=== PATIENT | female | born 1975 | race Caucasian/White ===

== ENCOUNTER 2019-12-13 17:45 | Emergency (ER) | payer OTHER, SELFPAY ==
--- NOTE | ~2019-12-13 | CT_ITS ---
EXAMINATION: CT facial bones wo con EXAM DATE: 12/13/2019 19:15 INDICATION: Right shoulder pain, toothache. TECHNIQUE: Spiral CT of the facial bones was acquired in the axial plane without contrast. Coronal reformatted images were also reviewed. The dose-length product (DLP) for this examination was 501.38 mGy-cm. The exposure was tailored according to patient size, and iterative reconstruction (ASIR) wa s used as additional dose reduction technique. There is no prior study for comparison. FINDINGS: There are dental cavities. There is no mandibular erosion or facial abscess. The fat planes are preserved. No upper cervical lymphadenopathy. There is mild to moderate right maxillary sinus mu coperiosteal thickening. No sinus air-fluid levels. No fracture. IMPRESSION: 1. Dental cavities. Reviewed, dictated and finalized at location A. IMPRESSION: 1. Dental cavities.
[2019-12-13 17:47] VITALS: BP 152/102; PULSE 99; RESP 16; TEMP 36.7; O2SAT 98
--- NOTE | 2019-12-13 19:23 | PC.NURSE ---
Assumed care of patient from SEEMA Acosta. Pt resting in stretcher in NAD, denies needs at this time, call light within reach.
[2019-12-13 19:26] LABS: Basophils Absolute Auto 0.1 K/mm3 (0.0-0.1); Basophils Percent Auto 0.5 % (0.2-1.2); Hemoglobin 13.6 g/dL (12.0-15.0); Immature Granulocyte Absolute 0.04 K/mm3 (0.00-0.031); Immature Granulocyte Percent A 0.3 % (0-0.5); Lymphocytes Absolute Auto 3.91 K/mm3 (0.9-3.2); Mean Corpuscular HGB Conc 32.4 g/dl (32-36); Mean Corpuscular Hemoglobin 29.6 pg (26-34); Mean Corpuscular Volume 91.5 fl (80-100); Mean Platelet Volume 9.1 fl (7.4-10.4); Monocytes Absolute Auto 0.6 K/mm3 (0.1-0.6); Monocytes Percent Auto 4.5 % (2.6-8.5); Neutrophils Absolute Auto 8.4 K/mm3 (1.3-6.7); Neutrophils Percent Auto 64.7 % (45.5-73.1); Platelet Count Result 366 k/mm3 (150-375); Red Blood Count 4.59 M/mm3 (4.2-5.4); Red Cell Distribution Width 14.6 % (11.5-14.5)
[2019-12-13 19:59] LABS: Erythrocyte Sedimentation Rate 19 mm/hr (0-20)
--- NOTE | 2019-12-13 20:02 | ED.DENTAL ---
HPI - Dental/Oral General Chief complaint: Dental/Oral <PRANAY uGerrier Last Filed: 12/13/19 20:11> Stated complaint: tooth infection <PRANAY Guerrier Last Filed: 12/13/19 20:11> Time Seen by Provider: 12/13/19 18:06 <PRANAY Guerrier Last Filed: 12/13/19 20:11> Source: patient <PRANAY Guerrier Last Filed: 12/13/19 20:11> Mode of arrival: ambulatory <PRANAY Guerrier Last Filed: 12/13/19 20:11> Limitations: no limitations <PRANAY Guerrier Last Filed: 12/13/19 20:11> History of Present Illness HPI Narrative: Patient presents the emergency department for toothache x1 month. Reports she was seen by her dentist for this and finished a round of clindamycin. Reports no relief. Reports she has continued to have pain, redness and swelling around the tooth. Denies fever vomiting. <PRANAY Guerrier Last Filed: 12/13/19 20:11> MD Complaint: tooth pain <PRANAY Guerrier Last Filed: 12/13/19 20:11> Location: Tooth # (4) <PRANAY Guerrier Last Filed: 12/13/19 20:11> Related Data Home medications: Home Medications Medication Instructions Recorded Confirmed budesonide-formoterol [Symbicort] INHALATION 12/13/19 escitalopram oxalate mg 12/13/19 lisinopril 12/13/19 omeprazole 12/13/19 <PRANAY Guerrier Last Filed: 12/13/19 20:11> Allergies/adverse reactions: Allergies Allergy/AdvReac Type Severity Reaction Status Date / Time Penicillins Allergy Mild HIVES Verified 12/13/19 17:50 STEROID MEDICATION AdvReac Mild Rash Uncoded 12/13/19 17:50 <PRANAY Guerrier Last Filed: 12/13/19 20:11> Review of Systems Review of Systems: Narrative: CONSTITUTIONAL: Denies fever ENT: Reports dentalgia SKIN: Denies rash <Cassi Almonte PA-C - Last Filed: 12/13/19 20:11> All systems reviewed & are unremarkable except as noted in HPI and below <Cassi Almonte PA-C - Last Filed: 12/13/19 20:11> PMFSH Past Medical History Medical History: Medical History (Updated 12/13/19 @ 20:07 by Cassi Almonte PA-C) History of asthma History of gastroesophageal reflux (GERD) History of hypertension <Cassi Almonte PA-C - Last Filed: 12/13/19 20:11> Social History Social History: Social History (Updated 12/13/19 @ 20:05 by Cassi Almonte PA-C) Smoking status: Never smoker <Cassi Almonte PA-C - Last Filed: 12/13/19 20:11> Exam Narrative: Exam Narrative: GENERAL: Well-appearing, well-nourished, and in no acute distress. HEAD: Normocephalic, atraumatic. EYES: EOMI. ENT: Mucous membranes moist. Oropharynx without tonsillar hypertrophy exudate or other lesions. Poor dentition. Tooth #4 rotten and tender to palpation with mild surrounding erythema, no fluctuance to suggest abscess. No trismus NECK: Supple. No adenopathy or masses. RESPIRATORY: Airway patent EXTREMITIES: Normal range of motion. No edema. SKIN: Warm, dry, no rash. NEURO: No focal deficits. Alert and oriented x3. PSYCH: Normal mood and affect <Cassi Almonte PA-C - Last Filed: 12/13/19 20:11> Course Vital Signs Vital signs: Vital Signs Temperature 98.1 F 12/13/19 17:47 Pulse Rate 99 12/13/19 17:47 Respiratory Rate 16 12/13/19 17:47 Blood Pressure 152/102 H 12/13/19 17:47 Pulse Oximetry 98 12/13/19 17:47 Temperature 98.1 F 12/13/19 17:47 Pulse Rate 96 12/13/19 20:20 Respiratory Rate 16 12/13/19 20:20 Blood Pressure 144/99 H 12/13/19 20:20 Pulse Oximetry 95 12/13/19 20:20 <Cassi Almonte PA-C - Last Filed: 12/13/19 20:11> Vital Signs Temperature 98.1 F 12/13/19 17:47 Pulse Rate 99 12/13/19 17:47 Respiratory Rate 16 12/13/19 17:47 Blood Pressure 152/102 H 12/13/19 17:47 Pulse Oximetry 98 12/13/19 17:47 Temperature 98.1 F 12/13/19 17:47 Pulse Rate 96 12/13/19 20:20 Respiratory Rate 16 12/13/19 20:20 Blood Press
[2019-12-13 20:20] VITALS: BP 144/99; PULSE 96; RESP 16; O2SAT 95
== END 2019-12-13 20:21 | disposition home or self-care (01) ==
PROVIDERS: Physician Assistant; Emergency Provider Emergency Medicine
DX: K08.89 Other specified disorders of teeth and supporting structures (principal); J45.909 Unspecified asthma, uncomplicated; K21.9 Gastro-esophageal reflux disease without esophagitis; I10 Essential (primary) hypertension; K02.9 Dental caries, unspecified
CPT/HCPCS: 36415; 70486; 85025; 85652; 86140; 99284

== ENCOUNTER 2021-06-12 12:15 | Outpatient (CLI) | payer OTHER, SELFPAY ==
--- NOTE | ~2021-06-12 | XR_ITS ---
XR lumbar spine 2-3V DATE: 06/12/2021 12:39 INDICATION: Low back pain, chronic bilateral lower extremity radiculopathy TECHNIQUE: AP, lateral, coned lateral lumbosacral views COMPARISON: None FINDINGS: There is mild levoscoliosis of the lower thoracic and lumbar spine. Osteopenia. There is mild degenerative spurring of the lumbar spine. The lumbar and lumbosacral interspaces appea r well preserved. No fracture or bone destruction is detected. The lumbar pedicles are intact. The sa croiliac joints appear normal. IMPRESSION: Mild levoscoliosis and mild degenerative spurring Osteopenia Reviewed, dictated and finalized at location B.
== END 2021-06-12 12:16 | disposition home or self-care (01) ==
LOC: ANHIMG 12:23
PROVIDERS: PCP Nurse Practitioner Family
DX: M54.50 Low back pain, unspecified (principal); M85.88 Other specified disorders of bone density and structure, other site
CPT/HCPCS: 72100

== ENCOUNTER 2022-10-05 15:00 | Outpatient (RCR) | payer OTHER, SELFPAY ==
[2022-08-13 09:40] VITALS: BP_SYST 90
--- NOTE | 2022-08-13 11:01 | BUPTOPEVAL1 ---
Assessment and note entered by Odalis Lozano, PT Evaluation Information Assessment Status Evaluation Diagnosis L shoulder pain Onset 5 years Subjective Information Reports lately left shoulder pain has increased. Reports started helping a ritchie lifting his w/c 8 months ago, and notes this is when her left shoulder started hurting. Reports is returning to MD Aug 19 to discuss options Reported Pain Level Pain Score 0-7/10 Assessment PT Clinical Summary Pt presents w/ c/o pain in left shoulder that began multiple years ago but increased notably when she began helping someone she knows by loading his wheelchair into his car. Pt demo's decreased AROM and PROM with poor posture consistent with shoulder impingement. Pt will benefit from therapy to address scapulothoracic and scapulohumeral kinematics to improve impingement and pain. Plan of Care Interventions Electrical Stimulation,Hot Pack/Cold Pack,Manual Therapy,Neuro Re-education,Patient/Caregiver Educati,Therapeutic Activities,Therapeutic Exercise,Ultrasound,Other Other Interventions Taping PT Services Indicated Yes Treatment Frequency and 2x weekly x 6 weeks Duration These treatments will address the objective and functional deficits as defined above. The patient will be advanced safely and appropriately in order for the patient to progress towards his/her prior level of function. Additional exercises will be introduced and as well as a comprehensive home exercise program upon discharge, if needed, ?to ensure carryover of functional gains achieved in the clinic. This treatment plan has been reviewed and agreement upon by the patient.
--- NOTE | 2022-08-17 09:30 | PCPTNOTE ---
Patient called & cancelled scheduled appointment this date due to family emergency and was currently heading to the police station. Was hoping to reschedule for later appointment but there was no availability.
--- NOTE | 2022-10-05 15:57 | PTOPDC ---
Assessment and note entered by Odalis Lozano, PT Assessment Status Discharge Diagnosis L shoulder pain Onset 5 years Subjective Information Reports feeling 100% improved. Pain is resolved, pt is able to lean her weight on her arm, carry items, and hang laundry without pain. Reported Pain Level Pain Score 0: Self Report Assessment PT Clinical Summary Pt has attended therapy consistently since initial evaluation. Today she reports feeling 100% improved, is able to perform all her activities pain free, has met all her personal goals and all therapy stated goals. Thus pt is being discharged from therapy POC.
== END 2022-10-06 10:55 | disposition home or self-care (01) ==
LOC: ANHHIPT 15:00
PROVIDERS: Visit Provider Orthopaedic Surgery
DX: M25.512 Pain in left shoulder (principal)
CPT/HCPCS: 97014; 97110; 97112; 97140; 97161; 99199; G0283

== ENCOUNTER 2022-12-24 10:30 | Outpatient (RCR) | payer OTHER, SELFPAY ==
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
--- NOTE | 2022-12-17 08:38 | PCPTNOTE ---
Patient called & cancelled scheduled appointment this date due to her son being in hospital. Pt will call back later to discuss further appointments.
--- NOTE | 2022-12-24 10:48 | PTOPPROGNS ---
Assessment and note entered by Odalis Lozano, PT Assessment Status Progress Report Diagnosis right shoulder pain Onset 11/20/22 Subjective Information Pt reports is still swelled up in the arm. Taping didn't help. Still can't lift arm to do grooming or other activities. Self-report feels no relief with swelling, pain is not improved especially with movement. Assessment PT Clinical Summary Pt has attended therapy for her right shoulder pain for 6 visits. We have used ultrasound, taping , manual therapy, cryotherapy, electrical stimulation, postural reeducation, and submaximal strengthening. Pt has given full effort and appears to have followed therapist instructions. However, she has not made improvement in her pain, swelling, or range. Thus we are referring her back to provider for further testing. Plan of Care PT Services Indicated Yes. Will await further instruction from MD These treatments will address the objective and functional deficits as defined above. The patient will be advanced safely and appropriately in order for the patient to progress towards his/her prior level of function. Additional exercises will be introduced and as well as a comprehensive home exercise program upon discharge, if needed, ?to ensure carryover of functional gains achieved in the clinic. This treatment plan has been reviewed and agreement upon by the patient.
--- NOTE | 2023-01-10 10:22 | PCPTNOTE ---
Patient called & cancelled scheduled appointment this date due to illness and being unable to go to her MRI last week due to illness
--- NOTE | 2023-01-12 14:48 | PTOPDC ---
Assessment and note entered by Odalis Lozano, PT Assessment Status Discharge Diagnosis right shoulder pain Onset 11/20/22 Subjective Information Pt reports is still swelled up in the arm. Taping didn't help. Still can't lift arm to do grooming or other activities. Self-report feels no relief with swelling, pain is not improved especially with movement. Reported Pain Level Pain Score 0: Self Report Assessment PT Clinical Summary Pt had attended therapy consistently for her shoulder pain after lifting injury. She also received a steroid shot and had no improvement with either. She was referred back to MD and referred for MRI. Was unable to have MRI due to illness on scheduled date. Spoke with patient today and she has opted to place therapy on hold until is able to follow up with MRI and MD. Thus is being discharged from therapy at this time. We will be happy to reinitiate therapy with a new order.
== END 2023-01-12 15:05 | disposition home or self-care (01) ==
LOC: ANHHIPT 10:30
PROVIDERS: Visit Provider Orthopaedic Surgery
DX: M25.511 Pain in right shoulder (principal); S46.011D Strain of muscle(s) and tendon(s) of the rotator cuff of right shoulder, subsequent encounter
CPT/HCPCS: 97014; 97032; 97035; 97110; 97112; 97140; 97162; G0283

== ENCOUNTER 2023-10-16 17:15 | Emergency (ER) | payer OTHER, SELFPAY ==
[2023-10-16 17:18] VITALS: BP 168/94; PULSE 102; RESP 18; TEMP 36.5; O2SAT 99
[2023-10-16 18:20] VITALS: BP 169/103; PULSE 98; RESP 19; O2SAT 99
[2023-10-16 19:30] VITALS: BP 142/100; PULSE 101; RESP 17; O2SAT 98
[2023-10-16] MEDS: methylPREDNISolone SOD SUCC 125 MG VIAL IV PUSH (20:33)
[2023-10-16] MEDS: diphenhydrAMINE HCl INJ 50 MG/ML VIAL IV PUSH (20:33)
--- NOTE | 2023-10-16 20:51 | ED.GENADULT ---
HPI - General Adult General Chief complaint: Allergic Reaction Stated complaint: allergic reaction Time Seen by Provider: 10/16/23 19:18 History of Present Illness HPI narrative: Patient is a 48-year-old female who presents emergency department with chief complaint of possible allergic reaction. The patient reports that she started on the new PPI yesterday and also an H2 anil. The patient states that she noticed today that her face was starting to swell the patient does report that she takes lisinopril as well but has been on it for some time has had no change in her doses and that today her symptoms have started after taking her new medications. The patient denies stridor denies difficulty swallowing reports that she is not itching Related Data Home Medications Medication Instructions Recorded Confirmed budesonide-formoterol HFA 160 inhalation 12/13/19 12/08/22 mcg-4.5 mcg/actuation aerosol inhaler (Symbicort) escitalopram oxalate 10 mg tablet mg 12/13/19 12/08/22 lisinopril 10 mg tablet 12/13/19 12/08/22 omeprazole 40 mg capsule,delayed 12/13/19 12/08/22 release Allergies Allergy/AdvReac Type Severity Reaction Status Date / Time prednisone Allergy Intermediate Hives Verified 10/16/23 17:15 Penicillins Allergy Mild HIVES Verified 10/16/23 17:15 Review of Systems Review of Systems: A 10 system review of systems was completed on the patient and is negative except for what is stated in the HPI. Nursing and ancillary documentation was reviewed. [facility] Past Medical History Medical History Asthma COPD (chronic obstructive pulmonary disease) History of asthma History of gastroesophageal reflux (GERD) History of hypertension Left shoulder pain Von Willebrand disease Surgical History Surgical History History of carpal tunnel release right History of hernia repair History of sinus surgery Family History Family History Father Alcoholism Cancer Other Asthma Cancer Diabetes mellitus Sibling Cancer Diabetes mellitus Hypertension Grandparent Diabetes mellitus Mother Cerebrovascular accident Social History Social History Smoking status: Never smoker Alcohol intake: never Substance use type: does not use Living arrangements: alone Exam Narrative: GENERAL: Well-appearing, well-nourished, and in no acute distress. HEAD: Normocephalic, atraumatic. EYES: PERRLA and EOMI. ENT: Nares clear, no rhinorrhea or epistaxis. Mucous membranes moist. Slight swelling present left side of the face no signs of intraoral edema, no stridor NECK: Supple. CHEST: Clear to auscultation. No respiratory distress. HEART: Regular rate and rhythm. No murmur heard. Normal peripheral pulses. ABDOMEN: Soft, nontender, nondistended, normal active bowel sounds. EXTREMITIES: Normal range of motion. No edema. SKIN: Warm, dry, no rash. NEURO: No focal deficits. Alert and oriented x3. PSYCH: Normal mood and affect. Course Vital Signs Vital signs: Vital Signs Temperature 36.5 C 10/16/23 17:18 Pulse Rate 102 H 10/16/23 17:18 Respiratory Rate 18 10/16/23 17:18 Blood Pressure 168/94 H 10/16/23 17:18 Pulse Oximetry 99 10/16/23 17:18 Oxygen Delivery Room Air 10/16/23 17:18 Temperature 36.5 C 10/16/23 17:18 Pulse Rate 101 H 10/16/23 19:30 Respiratory Rate 17 10/16/23 19:30 Blood Pressure 142/100 H 10/16/23 19:30 Pulse Oximetry 98 10/16/23 19:30 Oxygen Delivery Room Air 10/16/23 17:18 Medical Decision Making [facility] Narrative Medical decision making narrative: Differential diagnosis includes allergic reaction, Patient was given IM steroids and IM Benadryl since she was a difficult IV access. The patie
[2023-10-16 21:30] VITALS: BP 135/95; PULSE 78; RESP 16; TEMP 36.7; O2SAT 98
== END 2023-10-16 21:35 | disposition home or self-care (01) ==
PROVIDERS: Emergency Provider Emergency Medicine
DX: R22.0 Localized swelling, mass and lump, head (principal); T50.995A Adverse effect of other drugs, medicaments and biological substances, initial encounter; J44.9 Chronic obstructive pulmonary disease, unspecified; K21.9 Gastro-esophageal reflux disease without esophagitis; I10 Essential (primary) hypertension; D68.00 Von Willebrand disease, unspecified
CPT/HCPCS: 96374; 96375; 99284; J1200; J2930

== ENCOUNTER 2025-07-04 13:08 | Outpatient (CLI) | payer OTHER, SELFPAY ==
--- NOTE | ~2025-07-04 | XR_ITS ---
XR_[id number]_CR Indication: RT SIDED NECK PAIN DOWN INTO RT ARM x3 MONTHS Comparison: None Findings: The vertebral heights are intact. No fracture or subluxation. The disc heights are intact. Soft tissues unremarkable Impression: No acute abnormality. Reviewed, dictated and finalized at location P. Impression: No acute abnormality.
--- NOTE | ~2025-07-04 | XR_ITS ---
EXAMINATION: XR shoulder RT min 2V, 07/04/2025 13:38 CDT HISTORY: RT SHOULDER PAIN RADIATES INTO RT SIDE OF NECK RT ARM COMPARISON: No comparisons available. Findings: No acute fracture or malalignment. Moderate degenerative changes Soft tissues unremarkable. Impression: No acute fracture or malalignment. Reviewed, dictated and finalized at location P. Impression: No acute fracture or malalignment.
--- NOTE | ~2025-07-04 | XR_ITS ---
XR lumbar spine 2-3V Indication: RT SIDED LBP DOWN INTO RT LEG x3 MONTHS Comparison: None Findings: The vertebral heights are intact. No fracture or subluxation. The disc heights are intact. Soft tissues unremarkable Impression: No acute abnormality. Reviewed, dictated and finalized at location P. Impression: No acute abnormality.
--- OUTSIDE RECORDS SUMMARY | 2025-07-04 14:13 | XMS_ITS | Clinical Summary ---
Author Organization [facility] [employer] Address [address] [place] [address] Care Team Providers Care Manager News Name Role Phone Augustina Cesar ONEYDA-TURNER MACHINE Primary Care Provider Source Comments [facility],non-owned Affiliates and Associated Physician Practices is amultiple site organization consisting of ambulatory clinics and hospital sitesin [place], [place], [place] and [place]. This disclosure is being madepursuant to the Care Everywhere program and may not contain all information available regarding this patient. Last updated 18.[facility] Allergies Active Allergy Reactions Criticality Noted Date Comments Penicillins Rash Medium 04/01/2018 Medications * Be aware that medications may not be up to date on this document. Alwaysverify current medications with the patient. lisinopril (Prinivil; Zestril) 10 MG tablet Take 1 (one) tablet by mouth once daily Active famotidine (Pepcid) 20 MG tablet Take 1 (one) tablet by mouth once daily Active escitalopram (Lexapro) 10 MG tablet Take 1 (one) tablet by mouth once daily Active albuterol HFA (Proventil; Ventolin; Proair) 108 (90 Base) MCG/ACT inhaler Inhale 2 (two) puffs by mouth every 6 hours as needed Active tranexamic acid (Lysteda) 650 MG tablet Dissolve 1300 mg (two 650 mg tablets) in 20 mL of water. Swish and swallow three times daily, for five days, starting one hour prior to procedure. 30 tablet 03/26/2024 Active Active Problems Problem Noted Date Diagnosed Date Closed displaced fracture of proximal phalanx of toe of left foot 04/12/2018 Family History Medical History Relation Name Comments Hemophilia Brother 1 Adalberto Cancer - Lung Father Cancer - Prostate Maternal Uncle Hemophilia Paternal Cousin Anirudh Von [place] Disease Cancer - Prostate Paternal Uncle Hemophilia Sister 1 Shelbi Cancer - Breast Sister 2 Hemophilia Son 2 César Von Willebrand Disease Relation Name Status Comments Brother 1 Adalberto Alive Brother 2 Alive Father Maternal Uncle Mother Alive Paternal Cousin Anirudh Alive Paternal Uncle Sister 1 Shelbi Alive Sister 2 Son 1 Alive Son 2 César Alive Social History Tobacco Use Types Packs/Day Years Used Date Smoking Tobacco: Never Smokeless Tobacco: Never Tobacco Cessation:Counseling Given: Not Answered Alcohol Use Standard Drinks/Week Comments No 0 (1 standard drink = 0.6 oz pur e alcohol) Comments No Sex and Gender Information Value Date Recorded Sex Assigned at Not on file 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 Gender Identity Not on file Sexual Orientation Not on file Last Filed Vital Signs Vital Sign Reading Time Taken Comments Blood Pressure 145/93 03/26/2024 1:14 PM CDT Pulse 84 03/26/2024 1:14 PM CDT Temperature 36.8 C (98.2 F) 03/26/2024 1:14 PM CDT Respiratory Rate 20 03/26/2024 1:14 PM CDT Oxygen Saturation 97% 03/26/2024 1:14 PM CDT Inhaled Oxygen Concentration - - Weight 109.3 kg (240 lb 15.4 oz) 04/10/2024 7:27 AM CDT Height 162.6 cm (5' 4.02) 04/10/2024 7:27 AM CD T Body Mass Index 41.34 04/10/2024 7:27 AM CDT Plan of Treatment Health Maintenance Due Date Last Done Comments COLOGUARD (AGES 45-75) - COLON CA SCREENING 1973 COLON MONITORING 1973 COLONOSCOPY - COLON CA SCREENING 1973 CT COLONOGRAPHY - COLON CA SCREENING 1973 Colorectal Cancer Screening 1973 FIT - COLON CA SCREENING 1973 FLEX SIG - COLON CA SCREENING 1973 LIPID TESTING 1973 HIV SCREENING 1988 HEPATITIS C SCREENING 06/04/1991 DTAP/TDAP/TD VACCINES (1 - Tdap) 1992 HEPATITIS B VACCINE (1 of 3 - 19+ 3-dose series) 1992 PNEUMOCOCCAL VACCINE 50+ (1 of 2 - PCV) 1992 PAP SMEAR 12/14/2019 12/13/2016 ZOSTER VACCINE (1 of 2) 2023 SCREENING FOR DIABETES 02/16/2024 02/17/2017 DEPRESSION SCREENING 09/12/2024 COVID-19 VACCINE (3 - season) 2025 07/02/2022, 01/17/2021 INFLUENZA VACCINE (#1) 2025 , 07/02/2022, 10/22/2020, Additional history exists MAMMOGRAM 12/29/2025 12/30/2023, 12/11, 12/30/2023 HIB VACCINE Aged Out No longer eligi ble based on patient's age to complete this topic HPV VACCINE Aged Out No longer eligi ble based on patient's age to complete this topic MENINGOCOCCAL (Group B) VACCINE SHARED DECISION-MAKING Aged Out No longer eligible based on patient's age to complete this topic MENINGOCOCCAL GROUPS A/C/Y/W VACCINE Aged Out No longer eligible based on patient's age to complete this topic Medical Devices Implanted Type Area Card Filer Device Identifier Shelf Expiration Date Model / Serial / Lot Mrkr Rgd Shrp Dlv Sys Hydromark Brstbio Implanted:Qty: 1 on 04/10/2024 by Kellen Wilson DO at [facility] Right: [employer]illa [employer] [id number] 02/05/2027 4010-02-1 5-T3 / / [id number] Procedures Procedure Name Priority Date/Time Associated Diagnosis Comments COMPREHENSIVE METABOLIC PANEL Routine 02/17/2017 4:13 PM CDT PAP IMAGE-GUIDED W HPV Routine 7 12:00 AM CDT from Last 3 Months or Most Recently Relevant to Health Maintenance Results * (ABNORMAL) COMPREHENSIVE METABOLIC PANEL (02/17/2017 4:13 PM CDT) BUN 10 7 - 26 mg/dL [facility] Creatinine 0.7 0.6 - 1.2 mg/dL [facility] Sodium 141 136 - 145 mmol/L [facility] Potassium 3.6 3.5 - 4.5 mmol/L [facility] Chloride 107 98 - 107 mmol/L [facility] CO2 20(L) 22 - 29 mmol/L [facility] Glucose 94 70 - 115 mg/dL [facility] Calcium 9.6 8.4 - 10.2 mg/dL [facility] Protein Total 7.8 6.0 - 8.3 g/dL [facility] Albumin 3.5 3.4 - 5.0 g/dL [facility] Bilirubin Total 0.1(L) 0.2 - 1.2 mg/dL [facility] Alkaline Phosphatase 73 40 - 150 Units/L [facility] ALT 15 0 - 55 Units/L [facility] AST 19 5 - 34 Units/L [facility] Anion Gap 18 8 - 18 [facility] BUN/Creatinine Ratio 14 7 - 23 [facility] Osmolality Calculated 291 270 - 300 mOsm/kg [facility] Albumin/Globulin Ratio 0.8(L) 1.1 - 2.3 [facility] eGFR >60 >60 mL/min/1.7 3 m2 [facility] Blood specimen (specimen) BLOOD SPECIMEN / Unknown 02/17/2017 4:13 PM CDT 02/17/2017 4:19 PM CDT Blake Taveras MD LAB - CHEMISTRY ORDERABLES Fin al Result [address] [phone] * PAP IMAGE-GUIDED LIQUID BASE W HPV (12/13/2016 12:00 AM CDT) Pap Image-Guided Liquid-Based with HPV Accession No: [id number] Specimen:Endocervi alexander ThinPrep Slides:1 SPECIMEN ADEQUACY: SATISFACTORY FOR EVALUATION - Endocervical / Transformation Zone Component Present INTERPRETATION: NEGATIVE FOR INTRAEPITHELIAL LESION OR MALIGNANCY NOTE(S): HPV DIRECT - HPV Result to Follow This specimen was evaluated by the ThinPrep Imaging System along with an additional manual rescreening by a community service officer and/or pathologist Interpretation performed by Isidro RODRIGUEZ(ASCP). Electronically signed 12/14/2016 [facility] Endocervical 12/13/2016 12/14/2016 12:21 PM CDT Farheen Park MD LAB - PATHOLOGY/CYTOLOGY ORDERAB LES Final Result [facility] from Last 3 Months or Most Recently Relevant to Health Maintenance Insurance [employer] [facility] Care Teams Manager News Relationship Specialty Start Date End Date Augustina Cesar APRN-CNP [address] [place] [address] PCP - General 04/03/18
--- OUTSIDE RECORDS SUMMARY | 2025-07-04 14:13 | XMS_ITS | Encounter Summary ---
Author Organization [facility] Address [address] [place] [address] Phone Care Team Providers Care Shingle Carrier Name Role Phone Jignesh Caballero MD Unavailable Pauline Jewell MD Unavailable Blake Taveras MD Unavailable [phone] Provider, Unknown Primary Care Provider Unavaila ble Encounter Details Date Type Department Care Team (Late st Contact Info) Description 11/01/2023 Telephone [facility] [address] [place] [address] Abe Mata MD [address] [place] [address] Social History Tobacco Use Types Packs/Day Years Used Date Smoking Tobacco: Never Smokeless Tobacco: Never Alcohol Use Standard Drinks/Week Comments No 0 (1 standard drink = 0.6 oz pur e alcohol) PHQ-2 Answer Date Recorded Total Score - Questions 1-9 0 01/2020 Sexually Active Control Partners Comments Not Currently Comments No Sex and Gender Information Value Date Recorded Sex Assigned at Not on file 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 [facility] not [facility] to schedule how would you like to proceed NEYMAN WELDER documented in this encounter Plan of Treatment Not on file documented as of this encounter Visit Diagnoses Not on filedocumented in this encounter Additional Health Concerns Assessment Noted Time PHQ-9 Depression Total Score: 0 07/17/20 12:36 PM JOURNEYMAN WELDER documented as of this encounter Care Teams Shingle Carrier Relationship Specialty Start Date End Date Provider, Unknown UNKNOWN PCP - General 08/24/18 Jignesh Caballero MD General Surgery 12/04/15 Pauline Jewell MD [address] [place] [address] [phone] General Surgery 02/01/17 Blake Taveras MD [address] [place] [address] [phone] Hematology 03/09/17 documented as of this encounter
--- OUTSIDE RECORDS SUMMARY | 2025-07-04 14:13 | XMS_ITS | Clinical Summary ---
Author Organization [facility] Address [address] [place] [address] Phone Care Team Providers Care Nurses Superintendent Name Role Phone Jignesh Caballero MD Unavailable Pauline Jewell MD Unavailable [phone] Blake Taveras MD Unavailable [phone] Provider, Unknown Primary Care Provider Unavaila ble Allergies Active Allergy Reactions Criticality Noted Date Comments Corticosteroids Rash 11/18/2016 Enalapril Nausea Low 02/17/2017 Nsaids Other (see Comments) 03/05/2021 Unable to take due to bleeding disorder Penicillins Rash 10/16/2015 Medications VENTOLIN HFA 108 (90 BASE) MCG/ACT Aerosol Solution 6 Active fluticasone-salm eterol (ADVAIR DISKUS) 250-50 MCG/DOSE AEROSOL POWDER, BREATH ACTIVATEDIndicat ions:Chronic Obstructive Pulmonary Disease take 1 Puff by inhalation once. Active Symbicort 160-4.5 MCG/ACT Aerosol take 1 Puff by inhalation daily. 0 Active lisinopril (PRINIVIL, ZESTRIL) 5 MG Tablet Take 10 mg by mouth daily. 9 Active albuterol 108 (90 Base) MCG/ACT Aerosol Solution take 2 Puffs by inhalation 2 times daily as needed. 9 Active omeprazole (PriLOSEC) 40 MG CAPSULE DELAYED RELEASE Take 40 mg by mouth daily. 3 Active escitalopram (LEXAPRO) 10 MG Tablet Take 1 Tablet by mouth daily. 90 Tablet 3 4 Active famotidine (PEPCID) 40 MG Tablet TAKE 1 TABLET BY MOUTH ONCE DAILY AT BEDTIME 4 Active Active Problems Problem Noted Date Diagnosed Date Von Willebrand's disease 12/04/2015 Right upper quadrant abdominal pain 12/04/2015 Hypokalemia 10/23/2015 Bleeding disorder 10/16/2015 Iron deficiency anemia due to chronic blood loss 10/16/2015 Family History Medical History Relation Name Comments No Known Problems Brother 1 No Known Problems Brother 2 No Known Problems Brother 3 Cancer Father lung Diabetes Mother Cancer Sister breast Relation Name Status Comments Brother 1 Brother 2 Alive Brother 3 Alive Father Mother Alive Sister Alive Social History Tobacco Use Types Packs/Day [...] on file 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 Gender Identity Not on file Sexual Orientation Not on file Last Filed Vital Signs Vital Sign Reading Time Taken Comments Blood Pressure 126/84 04/26/2024 11:42 AM CDT Pulse 87 04/26/2024 11:42 AM CDT Temperature 35.7 C (96.3 F) 04/26/2024 11:42 AM CDT Respiratory Rate 18 04/26/2024 11:4 2 AM CDT Oxygen Saturation 96% 04/26/2024 11: 42 AM CDT Inhaled Oxygen Concentration - - Weight 109.6 kg (241 lb 9.6 oz) 024 11:42 AM CDT Height 167.6 cm (5' 6) 04/26/2024 11:4 2 AM CDT Body Mass Index 39 04/26/2024 11:42 AM CDT Plan of Treatment Health Maintenance Due Date Last Done Comments Hepatitis C Virus (HCV) Screening 1973 TdaP Immunization 1973 Hepatitis B Immunization (1 of 3 - 19+ 3-dose series) 1992 Pap Smear 1994 Cervical Cancer Screening (CCS) 2003 HPV/Cotest 2003 Cologuard 2018 Colonoscopy 2018 Colorectal Cancer Screening 2018 Immunochemical Fecal Occult Blood 2018 Zoster Immunization (1 of 2) 2023 Mammogram 04/10/2025 04/10/2024, 12/11, 12/30/2023, Additional history exists Influenza Immunization (#1) 05/13/202506/12, 06/13/2023, 07/02/2022, Additional history exists SARS-COV-2 Immunization ( season) 2025 07/02/2022, 01/17/2021 Respiratory Syncytial Virus (RSV) Immunization (Adult) (1 - 1-dose 75+ series) 2048 Discussion re Starting/Frequency of Mammograms Discontinued 04/10/2024, 12/30/2023, 12/30/2023 Pneumococcal Immunization (50+ years) Completed 10/08/2024 Pneumococcal Immunization Combined Discontinued 10/08/2024 Human Papillomavirus (HPV) Immunization Aged Out No longer eligible based on patient's age to complete this topic Meningococcal Immunization (ACWY) Aged Out No longer eligible based on patient's age to complete this topic Rotavirus Immunization Aged Out No lo nger eligible based on patient's age to complete this topic Procedures Procedure Name Priority Date/Time Associated Diagnosis Comments VALERIE DIAG BILATERAL DIGITAL W CAD Routine 12/30/2023 Abnormal breast exam Family history of breast cancer from Last 3 Months or Most Recently Relevant to Health Maintenance Results * VALERIE DIAG BILATERAL DIGITAL W CAD (12/30/2023) Anatomical Region Laterality Modality breast Bilateral Mammography Abe Mata MD IMG MAMMO ORDERABLES Final Result from Last 3 Months or Most Recently Relevant to Health Maintenance Insurance MEDICAID [employer] Care Teams Nurses Superintendent Relationship Specialty Start Date End Date Provider, Unknown UNKNOWN PCP - General 08/24/18 Jignesh Caballero MD General Surgery 12/04/15 Pauline Jewell MD [address] [place] [address] [phone] General Surgery 02/01/17 Blake Taveras MD [address] [place] [phone] Hematology 03/09/17
== END 2025-07-04 13:09 | disposition home or self-care (01) ==
DX: M25.511 Pain in right shoulder (principal); M51.362 Other intervertebral disc degeneration, lumbar region with discogenic back pain and lower extremity pain; M54.2 Cervicalgia; G89.29 Other chronic pain
CPT/HCPCS: 72040; 72100; 73030